=== PATIENT | male | born 2000 | race African-American/Black ===

== ENCOUNTER 2023-09-26 09:47 | Observation (INO) | payer OTHER ==
--- NOTE | 2023-09-26 10:12 | ED ---
General Adult HPI - General Chief complaint: Chest Pain Stated complaint: Chest pain Time Seen by Provider: 09/26/23 10:00 Source: patient, RN notes reviewed, old records reviewed Mode of arrival: ambulatory Limitations: no limitations - History of Present Illness Initial comments: This is a 23-year-old male who presents to the emergency department stating that he has had high blood pressure in the past but takes no medicines currently. Patient states he has been on them but his blood pressure comes down so he comes off of them. Patient states for the last month and a half he has been having a fast heart rate even when he gets up and walks around and he is having some associated chest pain on the left side when it occurs as well as shortness of breath. Patient states he supposed to do some physical activity with [employer] and he states he is unable to do it because his heart rate starts racing immediately. Patient states his heart rate will get up about 120 with just walking. Patient has no physician at this time. Patient has not seen anybody in the last month and a half of the symptoms. Patient denies any blurred vision or headache. Patient [place] any numbness or weakness. - Related Data Allergies Allergy/AdvReac Type Severity Reaction Status Date / Time No Known Allergies Allergy Verified 09/26/23 09:51 Review of Systems ROS Statement: Those systems with pertinent positive or pertinent negative responses have been documented in the HPI. ROS Other: All systems not noted in ROS Statement are negative. Past Medical History Past Medical History: No Reported History History of Any Multi-Drug Resistant Organisms: None Reported Past Surgical History: No Surgical Hx Reported Past Psychological History: No Psychological Hx Reported Smoking Status: Never smoker Past Alcohol Use History: None Reported Past Drug Use History: None Reported General Exam - General Exam Comments Initial Comments: GENERAL: Patient is well-developed and well-nourished. Patient is nontoxic and well- hydrated and is in mild distress. ENT: Neck is soft and supple. No significant lymphadenopathy is noted. Oropharynx is clear. Moist mucous membranes. Neck has full range of motion without eliciting any pain. EYES: The sclera were anicteric and conjunctiva were pink and moist. Extraocular movements were intact and pupils were equal round and reactive to light. Eyelids were unremarkable. PULMONARY: Unlabored respirations. Good breath sounds bilaterally. No audible rales rhonchi or wheezing was noted. CARDIOVASCULAR: There is a regular rate and rhythm without any murmurs gallops or rubs. ABDOMEN: Soft and nontender with normal bowel sounds. SKIN: Skin is clear with no lesions or rashes and otherwise unremarkable. NEUROLOGIC: Patient is alert and oriented x3. Cranial nerves II through XII are grossly intact. Motor and sensory are also intact. Normal speech, volume and content. Symmetrical smile. MUSCULOSKELETAL: Normal extremities with adequate strength and full range of motion. LYMPHATICS: No significant lymphadenopathy is noted PSYCHIATRIC: Normal psychiatric evaluation. Limitations: no limitations Course Vital Signs 09/26/23 09/26/23 09/26/23 09:49 10:30 10:40 Temperature 97.9 F Pulse Rate 101 H 90 110 H Respiratory 18 Rate Blood Pressure 178/122 165/105 148/103 O2 Sat by Pulse 99 Oximetry 09/26/23 09/26/23 09/26/23 10:50 11:00 11:15 Temperature Pulse Rate 90 91 Respiratory Rate Blood Pressure 157/104 157/104 143/103 O2 Sat by Pulse Oximetry 09/26/23 09/26/23 09/26/23 11:30 11:45 12:00 Temperature Pulse Rate 94 105 H 93 Respiratory Rate Blood Pressure 147/93 141/92 140/95 O2 Sat by Pulse Oximetry 09/26/23 09/26/23 09/26/23 12:15 12:30 12:45 Temperature Pulse Rate 87 101 H 95 Respiratory Rate Blood Pressure 139/91 143/104 160/101 O2 Sat by Pulse Oximetry 09/26/23 09/26/23 09/26/23 13:00 13:15 13:30 Temperature Pulse Rate 87 102 H 87 Respiratory Rate Blood Pressure 156/102 163/100 160/104 O2 Sat by Pulse Oximetry Medical Decision Making - Medical Decision Making EKG is interpreted by myself but EKG shows a sinus rhythm at 89 bpm parables 144 QRS is 94 QT interval 346 QTc is 393. Patient's EKG shows no ST segment elevation or depression Was pt. sent in by a medical professional or institution ([facility], [employer], urgent care, hospital, or group home...) When possible be specific @ -No Did you speak to anyone other than the patient for history (EMS, parent, family, police, friend...)? What history was obtained from this source @ -No Did you review nursing and triage notes (agree or disagree)? Why? @ -I reviewed and agree with nursing and triage notes Were old charts reviewed (outside hosp., previous admission, EMS record, old EKG, old radiological studies, urgent care reports/EKG's, group home records)? Report findings @ -No old charts were reviewed Differential Diagnosis (chest pain, altered mental status, abdominal pain women, abdominal pain men, vaginal bleeding, weakness, fever, dyspnea, syncope, headache, dizziness, GI bleed, back pain, seizure, CVA, palpatations, mental health, musculoskeletal)? @ -Differential Dyspnea: Coronary syndrome, arrhythmia, tamponade, asthma, COPD, pulmonary embolism, pneumonia, pneumothorax, pulmonary effusion, anaphylaxis, diabetic ketoacidosis, flailed chest, pulmonary contusion, diaphragmatic rupture, anemia, neuromuscular, this is not meant to be an all-inclusive list. EKG interpreted by me (3pts min.). @ -As above X-rays interpreted by me (1pt min.). @ -Chest x-ray shows no acute abnormality CT interpreted by me (1pt min.). @ -None done U/S interpreted by me (1pt. min.). @ -None done What testing was considered but not performed or refused? (CT, X-rays, U/S, labs)? Why? @ -None What meds were considered but not given or refused? Why? @ -None Did you discuss the management of the patient with other professionals (professionals i.e. , PA, HANDSTITCHING MACHINE COLLAR FELLER, lab, RT, psych nurse, dialysis social worker, spray gun striper, teacher, medical laboratory technical officer, manager rn case)? Give summary @ -I spoke with Dr. Abebe agreed to admit the patient Was smoking cessation discussed for >3mins.? @ -No Was critical care preformed (if so, how long)? @ -No Were there social determinants of health that impacted care today? How? (Homelessness, low income, unemployed, alcoholism, drug addiction, transportation, low edu. Level, literacy, decrease access to med. care, detention, rehab)? @ -No Was there de-escalation of care discussed even if they declined (Discuss DNR or withdrawal of care, Hospice)? DNR status @ -No What co-morbidities impacted this encounter? (DM, HTN, Smoking, COPD, CAD, Cancer, CVA, ARF, Chemo, Hep., AIDS, mental health diagnosis, sleep apnea, morbid obesity)? @ -None Was patient admitted / discharged? Hospital course, mention meds given and route, prescriptions, significant lab abnormalities, going to OR and other pertinent info. @ -Patient was given hydralazine to bring his blood pressure down it did bring the pressure down but patient stayed tachycardic even at rest and when he got up and walked on his heart rate went up into the 120s 130s range. I spoke with Dr. Abebe agreed admit the patient. I ordered an echo and I consult the cardiology Undiagnosed new problem with uncertain prognosis? @ -No Drug Therapy requiring intensive monitoring for toxicity (Heparin, Nitro, Insulin, Cardizem)? @ -No Were any procedures done? @ -No Diagnosis/symptom? @ -Exertional dyspnea Acute, or Chronic, or Acute on Chronic? @ -Acute Uncomplicated (without systemic symptoms) or Complicated (systemic symptoms)? @ -Complicated Side effects of treatment? @ -No Exacerbation, Progression, or Severe Exacerbation? @ -No Poses a threat to life or bodily function? How? (Chest pain, [place], [place], pneumonia, PE, COPD, DKA, ARF, appy, cholecystitis, CVA, Diverticulitis, Homicidal, Suicidal, threat to staff... and all critical care pts) @ -Yes this could lead to hypoxia and endorgan dysfunction Diagnosis/symptom? @ -Tachycardia Acute, or Chronic, or Acute on Chronic? @ -Acute Uncomplicated (without systemic symptoms) or Complicated (systemic symptoms)? @ -Complicated Side effects of treatment? @ -None Exacerbation, Progression, or Severe Exacerbation] @ -No Poses a threat to life or bodily function? @ -No - Lab Data Result diagrams: 09/26/23 10:19 09/26/23 10:19 Lab Results 09/26/23 09/26/23 09/26/23 Range/Units 10:19 10:19 10:19 WBC 4.8 (3.8-10.6) k/uL RBC 4.54 (4.30-5.90) m/uL Hgb 11.6 L (13.0-17.5) gm/dL Hct 37.4 L (39.0-53.0) % MCV 82.3 (80.0-100.0) fL MCH 25.5 (25.0-35.0) pg MCHC 31.0 (31.0-37.0) g/dL RDW 15.1 (11.5-15.5) % Plt Count 426 (150-450) k/uL MPV 7.6 Neutrophils % 48 % Lymphocytes % 40 % Monocytes % 6 % Eosinophils % 4 % Basophils % 1 % Neutrophils # 2.3 (1.3-7.7) k/uL Lymphocytes # 1.9 (1.0-4.8) k/uL Monocytes # 0.3 (0-1.0) k/uL Eosinophils # 0.2 (0-0.7) k/uL Basophils # 0.0 (0-0.2) k/uL Hypochromasia Moderate Poikilocytosis Slight PT 10.1 (10.0-12.5) sec INR 0.9 (<1.2) APTT 26.4 (22.0-30.0) sec D-Dimer <0.17 (<0.60) mg/L FEU Sodium (137-145) mmol/L Potassium (3.5-5.1) mmol/L Chloride (98-107) mmol/L Carbon Dioxide (22-30) mmol/L Anion Gap mmol/L BUN (9-20) mg/dL Creatinine (0.66-1.25) mg/dL Est GFR (CKD-EPI)AfAm (>60 ml/min/1.73 sqM) Est GFR (CKD-EPI)NonAf (>60 ml/min/1.73 sqM) Glucose (74-99) mg/dL Calcium (8.4-10.2) mg/dL Magnesium (1.6-2.3) mg/dL Total Bilirubin (0.2-1.3) mg/dL AST (17-59) U/L ALT (4-49) U/L Alkaline Phosphatase (38-126) U/L Troponin I (0.000-0.034) ng/mL NT-Pro-B Natriuret Pep pg/mL Total Protein (6.3-8.2) g/dL Albumin (3.5-5.0) g/dL TSH (0.465-4.680) mIU/L Urine Opiates Screen Not Detected (NotDetected) Ur Oxycodone Screen Not Detected (NotDetected) Urine Methadone Screen Not Detected (NotDetected) Ur Barbiturates Screen Not Detected (NotDetected) U Tricyclic Antidepress Not Detected (NotDetected) Ur Phencyclidine Scrn Not Detected (NotDetected) Ur Amphetamines Screen Not Detected (NotDetected) U Methamphetamines Scrn Not Detected (NotDetected) U Benzodiazepines Scrn Not Detected (NotDetected) Urine Cocaine Screen Not Detected (NotDetected) U Marijuana (THC) Screen Not Detected (NotDetected) 09/26/23 09/26/23 Range/Units 10:19 10:19 WBC (3.8-10.6) k/uL RBC (4.30-5.90) m/uL Hgb (13.0-17.5) gm/dL Hct (39.0-53.0) % MCV (80.0-100.0) fL MCH (25.0-35.0) pg MCHC (31.0-37.0) g/dL RDW (11.5-15.5) % Plt Count (150-450) k/uL MPV Neutrophils % % Lymphocytes % % Monocytes % % Eosinophils % % Basophils % % Neutrophils # (1.3-7.7) k/uL Lymphocytes # (1.0-4.8) k/uL Monocytes # (0-1.0) k/uL Eosinophils # (0-0.7) k/uL Basophils # (0-0.2) k/uL Hypochromasia Poikilocytosis PT (10.0-12.5) sec INR (<1.2) APTT (22.0-30.0) sec D-Dimer (<0.60) mg/L FEU Sodium 140 (137-145) mmol/L Potassium 4.4 (3.5-5.1) mmol/L Chloride 110 H (98-107) mmol/L Carbon Dioxide 20 L (22-30) mmol/L Anion Gap 10 mmol/L BUN 10 (9-20) mg/dL Creatinine 0.87 (0.66-1.25) mg/dL Est GFR (CKD-EPI)AfAm >90 (>60 ml/min/1.73 sqM) Est GFR (CKD-EPI)NonAf >90 (>60 ml/min/1.73 sqM) Glucose 93 (74-99) mg/dL Calcium 9.7 (8.4-10.2) mg/dL Magnesium 1.9 (1.6-2.3) mg/dL Total Bilirubin 0.3 (0.2-1.3) mg/dL AST 26 (17-59) U/L ALT 35 (4-49) U/L Alkaline Phosphatase 74 (38-126) U/L Troponin I <0.012 (0.000-0.034) ng/mL NT-Pro-B Natriuret Pep <20 pg/mL Total Protein 8.0 (6.3-8.2) g/dL Albumin 4.5 (3.5-5.0) g/dL TSH 1.000 (0.465-4.680) mIU/L Urine Opiates Screen (NotDetected) Ur Oxycodone Screen (NotDetected) Urine Methadone Screen (NotDetected) Ur Barbiturates Screen (NotDetected) U Tricyclic Antidepress (NotDetected) Ur Phencyclidine Scrn (NotDetected) Ur Amphetamines Screen (NotDetected) U Methamphetamines Scrn (NotDetected) U Benzodiazepines Scrn (NotDetected) Urine Cocaine Screen (NotDetected) U Marijuana (THC) Screen (NotDetected) Disposition Clinical Impression: Chest pain, Tachycardia, Exertional dyspnea Disposition: ADMITTED IP TO THIS HOSP Referrals: None,Stated [REFERRING] - 1-2 days Time of Disposition: 14:30
[2023-09-26] MEDS: hydrALAZINE HCL 20 MG/ML 1 ML VIAL IVP STA (10:26)
[2023-09-26 10:58] LABS: ALT 35 U/L (4-49); AST 26 U/L (17-59); African American GFR (CKD) >90 (>60 ml/min/1.73 sqM); Albumin 4.5 g/dL (3.5-5.0); Alkaline Phosphatase 74 U/L (38-126); Anion Gap 10 mmol/L; Blood Urea Nitrogen 10 mg/dL (9-20); Calcium 9.7 mg/dL (8.4-10.2); Carbon Dioxide 20 mmol/L (22-30); Chloride 110 mmol/L (98-107); Glucose 93 mg/dL (74-99); Magnesium 1.9 mg/dL (1.6-2.3); Non-African American GFR(CKD) >90 (>60 ml/min/1.73 sqM); Potassium 4.4 mmol/L (3.5-5.1); Sodium 140 mmol/L (137-145); Total Bilirubin 0.3 mg/dL (0.2-1.3)
--- NOTE | 2023-09-26 10:59 | XR ---
EXAMINATION TYPE: XR chest 2V DATE OF EXAM: 09/26/2023 COMPARISON: NONE HISTORY: Chest pain TECHNIQUE: Frontal and lateral views of the chest are obtained. FINDINGS: There is no focal air space opacity. No evidence for pneumothorax. No pleural effusion. The cardiac silhouette size is within normal limits. The osseous structures are grossly intact. IMPRESSION: 1. No acute cardiopulmonary process.
[2023-09-26 11:11] LABS: NT-Pro-B-Type Natriuretic Pept <20 pg/mL
[2023-09-26 11:12] LABS: Basophils % (A) 1 %; Eosinophils # (A) 0.2 k/uL (0-0.7); Eosinophils % (A) 4 %; HCT 37.4 % (39.0-53.0); HGB 11.6 gm/dL (13.0-17.5); Hypochromasia Moderate; Lymphocytes # (A) 1.9 k/uL (1.0-4.8); Lymphocytes % (A) 40 %; MCH 25.5 pg (25.0-35.0); MCV 82.3 fL (80.0-100.0); Mean Platelet Volume 7.6; Monocytes # (A) 0.3 k/uL (0-1.0); Monocytes % (A) 6 %; Neutrophils # (A) 2.3 k/uL (1.3-7.7); Neutrophils % (A) 48 %; Platelet Count 426 k/uL (150-450); Poikilocytosis Slight; RBC 4.54 m/uL (4.30-5.90); RDW 15.1 % (11.5-15.5); WBC 4.8 k/uL (3.8-10.6)
[2023-09-26 11:19] LABS: INR 0.9 (<1.2); Partial Thromboplastin Time 26.4 sec (22.0-30.0); Prothrombin Time 10.1 sec (10.0-12.5)
[2023-09-26 12:57] LABS: Amphetamine Screen,Urine Not Detected (NotDetected); Barbiturate Screen,Urine Not Detected (NotDetected); Benzodiazepines Screen,Urine Not Detected (NotDetected); Cocaine Screen,Urine Not Detected (NotDetected); Methadone Screen, Urine Not Detected (NotDetected); Opiate Screen,Urine Not Detected (NotDetected); Oxycodone Screen, Urine Not Detected (NotDetected); Phencyclidine Screen,Urine Not Detected (NotDetected); Tricyclic Antidepressant,Urine Not Detected (NotDetected); Urn Cannabinoid Scrn Not Detected (NotDetected)
[2023-09-26] MEDS ORDERED: NITROGLYCERIN SL TABS 0.4 MG TAB SUBLINGUAL PRN (14:33)
[2023-09-26 16:13] VITALS: RESP 16
[2023-09-26] MEDS ORDERED: MELATONIN 3 MG TABLET PO PRN (17:01)
[2023-09-26] MEDS ORDERED: ONDANSETRON 4 MG/2 ML VIAL IVP PRN (17:01)
[2023-09-26] MEDS ORDERED: LACTULOSE 20 GM/30 ML CUP PO PRN (17:01)
[2023-09-26] MEDS ORDERED: CALCIUM CARBONATE 500 MG CHEWABLE PO PRN (17:01)
[2023-09-26] MEDS ORDERED: ACETAMINOPHEN TAB 325 MG TAB PO PRN (17:01)
[2023-09-26] MEDS ORDERED: NALOXONE 0.4 MG/ML 1 ML VIAL IV PRN (17:01)
--- NOTE | 2023-09-26 17:09 | P.HPIM ---
History of Present Illness H&P Date: 09/26/23 Chief Complaint: Chest pain This is a pleasant 23-year-old patient who is currently seeking to see Dr. Lino Colvin and establish him as a PCP. Patient is accompanied by his girlfriend in the room. For about 6 weeks patient getting short of breath with exertion. He is normally sleeps with 2 pillows. Also stops breathing sometimes at night. As his girlfriend is reported. Does snore sometimes. Also yesterday while carrying empty garbage cans back to the house he developed sharp stabbing pain in the left precordial area. Denies any swelling of the legs. Does get a bit tired. Works in the [employer] in [place]. Patient is adopted. Denies any history of medical problems while growing up. Review of systems: GEN.: Tired EYES: None HEENT: None NECK: None RESPIRATORY: As above e CARDIOVASCULAR: As above e GASTROINTESTINAL: None GENITOURINARY: None MUSCULOSKELETAL: None LYMPHATICS: None HEMATOLOGICAL: None PSYCHIATRY: None NEUROLOGICAL: None Social history: Lives with his mother. Works in the [employer] at [place]. No smoking no alcohol no use of recreational drugs. Physical examination: VITAL SIGNS: 98.1, 90, 16, 140 x 87, 100% room air GENERAL: BMI 35.0, reclining bed awake comfortable. EYES: Pupils equal. Conjunctiva marguerite l. HEENT: External appearance of nose and ears normal, oral cavity grossly normal. NECK: JVD possibly raised; masses not palpable. HEART: First and second heart sounds are normal; no edema, systolic murmur. LUNGS: Respiratory rate normal; clear to auscultation. ABDOMEN: Soft, nontender, liver spleen not palpable, no masses palpable. PSYCH: Alert and oriented x3; mood and affect marguerite l. MUSCULOSKELETAL:No Clubbing/cyanosis;muscles-grossly intact NEUROLOGICAL: Cranial nerves grossly intact; no facial asymmetry, power and sensation grossly intact. LYMPHATICS: No lymph nodes palpable in the axilla and neck INVESTIGATIONS, reviewed in the clinical context: White count 4.8 hemoglobin 11.6 platelets 426 sodium 140 potassium 4.4 BUN 10 creatinine 0.87 Troponin I less than 0.012 x 2 proBNP less than 20 D-dimer less than 0.17 Urine drug screen: Negative EKG tracing personally reviewed by me-normal sinus rhythm. Chest x-ray film personally reviewed by me-no obvious abnormality Assessment plan: -Patient presents with increasing shortness of breath with exertion for short distance going on for about 6 weeks. Also having sharp stabbing pain with some activity today. Patient not in any overt cardiac failure. 2D echocardiogram. Telemetry. Rule out arrhythmia. Consult cardiology. -Obesity BMI 35 Weight loss measures -Normocytic anemia Check iron studies, B12 folate. I -Patient does snoring and does stop breathing as per his girlfriend. Outpatient workup for obstructive sleep apnea 2D echo. Consult cardiology and Dr. Lino Colvin from pulmonary who the patient supposed to see outpatient. Care was discussed with patient and his girlfriend at the bedside. Past Medical History Past Medical History: Hypertension History of Any Multi-Drug Resistant Organisms: None Reported Past Surgical History: No Surgical Hx Reported Past Anesthesia/Blood Transfusion Reactions: No Reported Reaction Past Psychological History: No Psychological Hx Reported Smoking Status: Never smoker Past Alcohol Use History: None Reported Past Drug Use History: None Reported Medications and Allergies Home Medications Medication Instructions Recorded Confirmed Type No Known Home Medications 09/26/23 09/26/23 History Allergies Allergy/AdvReac Type Severity Reaction Status Date / Time No Known Allergies Allergy Verified 09/26/23 15:18 Physical Exam Vitals: Vital Signs Temp Pulse Pulse Resp BP BP Pulse Ox 09/26/23 16:32 90 16 09/26/23 16:02 98.1 F 90 16 140/87 100 09/26/23 15:00 89 18 168/103 96 09/26/23 14:30 84 160/101 09/26/23 14:00 87 156/108 09/26/23 13:30 87 160/104 09/26/23 13:15 102 H 163/100 09/26/23 13:00 87 156/102 09/26/23 12:45 95 160/101 09/26/23 12:30 101 H 143/104 09/26/23 12:15 87 139/91 09/26/23 12:10 110 H 09/26/23 12:00 93 140/95 09/26/23 11:45 105 H 141/92 09/26/23 11:30 94 147/93 09/26/23 11:15 91 143/103 09/26/23 11:00 90 157/104 09/26/23 10:50 157/104 09/26/23 10:40 110 H 148/103 09/26/23 10:30 90 165/105 09/26/23 09:49 97.9 F 101 H 18 178/122 99 Intake and Output 09/26/23 09/26/23 09/26/23 06:59 14:59 22:59 Other: Voiding Method Toilet Weight 104.326 kg 104.326 kg Results CBC & Chem 7: 09/26/23 10:19 09/26/23 10:19 Labs: Abnormal Lab Results - Last 24 Hours (Table) 09/26/23 09/26/23 Range/Units 10:19 10:19 Hgb 11.6 L (13.0-17.5) gm/dL Hct 37.4 L (39.0-53.0) % Chloride 110 H (98-107) mmol/L Carbon Dioxide 20 L (22-30) mmol/L Thrombosis Risk Factor Assmnt - Choose All That Apply Any of the Below Risk Factors Present?: Yes Each Factor Represents 1 point: Obesity (BMI >25) Other Risk Factors: No Thrombosis Risk Factor Assessment Total Risk Factor Score: 1 Thrombosis Risk Factor Assessment Level: Low Risk
[2023-09-26] MEDS: ENOXAPARIN 40 MG/0.4 ML SYRINGE SQ SCH (17:23)
--- NOTE | 2023-09-26 17:39 | CA ---
Transthoracic Echo Report Name: Yoly Lott Age: 23 Gender: M : 2000 Exam Date: 09/26/2023 13:50 Exam Location: [facility] Ht (in): 68 Wt (lb): 230 Ordering Physician: Ezequiel Mccallum MD Attending/Referring Phys: Process Control Technician Kiara Massey RDCS Procedure CPT: Indications: Difficulty breathing and tachycardia Cardiac Hx: Technical Quality: Good Contrast 1: Total Dose (mL): Contrast 2: Total Dose (mL): MEASUREMENTS (Male / Female) Normal Values 2D ECHO LV Diastolic Diameter PLAX 5.5 cm 4.2 - 5.9 / 3.9 - 5.3 cm LV Systolic Diameter PLAX 3.5 cm IVS Diastolic Thickness 1.0 cm 0.6 - 1.0 / 0.6 - 0.9 cm LVPW Diastolic Thickness 1.2 cm 0.6 - 1.0 / 0.6 - 0.9 cm LV Relative Wall Thickness 0.4 RV Internal Dim ED PLAX 3.2 cm LA Systolic Diameter LX 3.7 cm 3.0 - 4.0 / 2.7 - 3.8 cm LV Diastolic Volume MOD BP 131.5 cm??? 67 - 155 / 56 - 104 cm??? LV Systolic Volume MOD BP 60.2 cm??? 22 - 58 / 19 - 49 cm??? LV Ejection Fraction MOD BP 54.2 % >= 55 % LV Cardiac Index MOD BP 2629.5 cm???/min???m??? LV Diastolic Volume MOD 4C 158.5 cm??? LV Systolic Volume MOD 4C 75.3 cm??? LV Ejection Fraction MOD 4C 52.5 % LV Cardiac Index MOD 4C 3066.6 cm???/min???m??? LV Diastolic Length 4C 8.5 cm LV Systolic Length 4C 7.8 cm LV Diastolic Volume MOD 2C 109.8 cm??? LV Systolic Volume MOD 2C 45.7 cm??? LV Ejection Fraction MOD 2C 58.4 % LV Cardiac Index MOD 2C 2364.6 cm???/min???m??? LV Diastolic Length 2C 8.8 cm LV Systolic Length 2C 7.2 cm M-MODE Aortic Root Diameter MM 2.8 cm DOPPLER AV Peak Velocity 140.2 cm/s AV Peak Gradient 7.9 mmHg Mitral E Point Velocity 81.7 cm/s Mitral A Point Velocity 63.5 cm/s Mitral E to A Ratio 1.3 MV Deceleration Time 226.6 ms MV E' Velocity 8.4 cm/s Mitral E to MV E' Ratio 9.7 TR Peak Velocity 240.4 cm/s TR Peak Gradient 23.1 mmHg Right Ventricular Systolic Press 28.1 mmHg FINDINGS Left Ventricle Left ventricular ejection fraction is estimated at 55-60 %. Left ventricular cavity size normal. Mildly increased left ventricular systolic volume. Normal left ventricular wall motion. Right Ventricle Normal right ventricular size. Right ventricular systolic pressure within normal limits. Right Atrium Normal right atrial size. Left Atrium Normal left atrial size. Mitral Valve Structurally normal mitral valve. Trace to mild mitral regurgitation. Aortic Valve Trileaflet aortic valve. No aortic valve stenosis or regurgitation. Tricuspid Valve Structurally normal tricuspid valve. Mild tricuspid regurgitation. Pulmonic Valve Structurally normal pulmonic valve. Trace pulmonic regurgitation. Pericardium No pericardial effusion. Aorta Normal size aortic root and proximal ascending aorta. CONCLUSIONS Left ventricular EF 55-60% RVSP 28 Trace to mild mitral regurgitation Mild tricuspid regurgitation No pericardial effusion Previewed by: Dr. Pop Marroquin DO (Electronically Signed) Final Date: 26 September 2023 17:38
--- NOTE | 2023-09-26 21:00 | P.CNPUL ---
History of Present Illness Consult date: 09/26/23 Reason for consult: dyspnea, obstructive sleep apnea Chief complaint: Increasing shortness of breath and left-sided chest pain History of present illness: 23-year-old morbidly obese with history of hypertension in the past has been on antihypertensive agent but due to low blood pressure several years ago has been taking off patient is a nonsmokershortness of breath has been progressive for last 6 weeks especially on exertion patient has been sleeping with 2 pillows patient was in fact supposed to see me as outpatient for sleep disorder breathing and sleep apnea.yesterday while doing exertion pushing garbage cans developed left-sided chest pain decided to come into the hospital for further evaluation, on arrival his blood pressure 178/122 heart rate is 101 he was afebrile and saturation 99%his labs are significant for anemia with hemoglobin 11.6 and hematocrit of 37.4, rest of the CBC fairly within normal limit, coags normal d-dimer is less than 0.17, CO2 is 20, chloride is 110 rest of the chemistry fairly within normal limit troponin 3 within normal limit, urine drug screen is negative, his chest x-ray no acute cardiopulmonary process seen, echocardiogramrevealed ejection fraction of 55%, RVSP is 28, mild TR Review of Systems All systems: negative Past Medical History Past Medical History: Hypertension History of Any Multi-Drug Resistant Organisms: None Reported Past Surgical History: No Surgical Hx Reported Past Anesthesia/Blood Transfusion Reactions: No Reported Reaction Past Psychological History: No Psychological Hx Reported Smoking Status: Never smoker Past Alcohol Use History: None Reported Past Drug Use History: None Reported Medications and Allergies Home Medications Medication Instructions Recorded Confirmed Type No Known Home Medications 09/26/23 09/26/23 History Allergies Allergy/AdvReac Type Severity Reaction Status Date / Time No Known Allergies Allergy Verified 09/26/23 15:18 Physical Exam Vitals: Vital Signs Temp Pulse Pulse Resp BP BP Pulse Ox 09/26/23 16:32 90 16 09/26/23 16:02 98.1 F 90 16 140/87 100 09/26/23 15:00 89 18 168/103 96 09/26/23 14:30 84 160/101 09/26/23 14:00 87 156/108 09/26/23 13:30 87 160/104 09/26/23 13:15 102 H 163/100 09/26/23 13:00 87 156/102 09/26/23 12:45 95 160/101 09/26/23 12:30 101 H 143/104 09/26/23 12:15 87 139/91 09/26/23 12:10 110 H 09/26/23 12:00 93 140/95 09/26/23 11:45 105 H 141/92 09/26/23 11:30 94 147/93 09/26/23 11:15 91 143/103 09/26/23 11:00 90 157/104 09/26/23 10:50 157/104 09/26/23 10:40 110 H 148/103 09/26/23 10:30 90 165/105 09/26/23 09:49 97.9 F 101 H 18 178/122 99 Intake and Output 09/26/23 09/26/23 09/26/23 06:59 14:59 22:59 Intake Total 118 Balance 118 Intake: Oral 118 Other: Voiding Method Toilet # Voids 1 Weight 104.326 kg 104.326 kg - Constitutional General appearance: disheveled, morbidly obese, no acute distress - EENT Eyes: EOMI, PERRLA Ears: bilateral: normal - Neck Neck: normal ROM Carotids: bilateral: upstroke normal Thyroid: bilateral: normal size - Respiratory Respiratory: bilateral: CTA - Cardiovascular Rhythm: regular Heart sounds: normal: S1, S2 - Gastrointestinal General gastrointestinal: normal bowel sounds, soft - Integumentary Integumentary: normal turgor - Neurologic Neurologic: CNII-XII intact - Musculoskeletal Musculoskeletal: gait normal, strength equal bilaterally - Psychiatric Psychiatric: A&O x's 3, appropriate affect, intact judgment & insight Results - Laboratory Findings CBC and BMP: 09/26/23 10:19 09/26/23 10:19 PT/INR, D-dimer PT 10.1 sec (10.0-12.5) 09/26/23 10:19 INR 0.9 (<1.2) 09/26/23 10:19 D-Dimer <0.17 mg/L FEU (<0.60) 09/26/23 10:19 Abnormal lab findings: Abnormal Labs 09/26/23 09/26/23 10:19 10:19 Hgb 11.6 L Hct 37.4 L Chloride 110 H Carbon Dioxide 20 L - Diagnostic Findings Chest x-ray: report reviewed, image reviewed (ECG revealed normal sinus rhythm, normal QT interval well) Assessment and Plan Assessment: hypertensive urgency Left-sided precordial chest pain likely related to elevated blood pressure and hypertensive urgency Sleep disorder breathing and sleep apnea Mild pulmonary hypertension likely related to sleep disorder breathing and sleep apnea dyspnea on exertion, likely associated with uncontrolled hypertension and cardiovascular process, morbid obesity Plan: continue with blood pressure control patient has received hydralazine, oral medications like low dose in CRISTOBAL inhibitor or calcium channel stacie can be initiated Patient will likely need outpatient polysomnogram as well as PFT Further evaluation from cardiovascular services pending DVT prophylaxis with Lovenox Melatonin for insomnia Sublingual nitro for chest pain Time with Patient: Greater than 30
[2023-09-27 03:22] VITALS: PULSE 95
[2023-09-27] MEDS: amLODIPine 10 MG TAB PO SCH (08:53)
[2023-09-27] MEDS: ASPIRIN 325 MG TAB PO SCH (08:53)
[2023-09-27] MEDS: LOSARTAN 50 MG TAB PO SCH (08:53)
[2023-09-27 08:54] VITALS: BP 148/84; TEMP 98.2
--- NOTE | 2023-09-27 09:24 | CONS ---
CONSULTATION CHIEF COMPLAINT: Shortness of breath and chest tightness. HISTORY OF PRESENT ILLNESS: The patient is a 23-year-old gentleman with history of hypertension who works in the [employer], came to hospital complaining of shortness of breath with very minimal activity and vague discomfort in his chest. On his initial arrival, his blood pressures were poorly controlled and his symptoms have gradually resolved. At the time of my evaluation, he is chest pain free. Blood pressure is still elevated. D-dimer is negative. 3 sets of troponins are negative. BNP is normal. Urine drug screen is normal. An EKG shows sinus rhythm, normal axis, normal intervals. Patient states that he was diagnosed with hypertension almost 10 years ago, was on antihypertensives for a short time and then it was stopped. An echocardiogram this admission reveals normal LV function and there is no evidence of left ventricular hypertrophy. I am going to start him on losartan and Norvasc for blood pressure control and check serum cortisol, renin, aldosterone, metanephrines to workup for secondary hypertension. He will also need a renal artery duplex scan which we will do as outpatient. PAST MEDICAL HISTORY: Significant for hypertension. MEDICATIONS: None. ALLERGIES: None. FAMILY HISTORY: Negative for premature coronary artery disease. SOCIAL HISTORY: Negative for current smoking, EtOH abuse or drug abuse. REVIEW OF SYSTEMS: 14 out of 14 review of systems has been performed, pertinents are as documented. PHYSICAL EXAMINATION: VITAL SIGNS: Patient is afebrile. Heart rate is 90 beats per minute. Blood pressure is 154/90, respiratory rate 18, O2 saturation is 100% on room air. NECK: There is no jugular venous distention. Carotid upstroke is normal. There is no bruit. CHEST: Reveals good air entry bilaterally. HEART: First and second heart sounds. No gallop. No murmur. No rub. ABDOMEN: Soft, nontender. EXTREMITIES: Did not reveal any edema. Peripheral pulses are felt. LABORATORY DATA: Show a hemoglobin of 11.6, platelet count is 426, potassium is 4.4, creatinine is 0.8. Troponins are negative. EKG is normal. TSH is normal. ASSESSMENT: 1. Atypical chest pain. 2. Uncontrolled hypertension. PLAN: I will treat the patient with losartan and Norvasc for blood pressure control. Echocardiogram looks normal. We will obtain a regular treadmill stress test on him on Friday or we can let him go home and get the stress test done as outpatient also. MMALEISHAL / GALN: [id number] /
[2023-09-27 13:40] LABS: % Iron Saturation 7.74 (15.00-50.00); Chol/HDL Ratio 5.37 Ratio; Ferritin 31.6 ng/mL (22.0-322.0); Iron 35 UG/DL (65-175); LDL Cholesterol,Calculated 137.9 mg/dL (0.0-131.0); Total Iron Binding Capacity 452 UG/DL (228-460)
--- NOTE | 2023-09-27 18:03 | P.DS ---
Providers Date of admission: 09/26/23 14:35 Expected date of discharge: 09/27/23 Attending physician: Davis Abebe Consults: 09/26/23 14:33 Consult Physician Urgent Consulting Provider: [facility] Consult Reason/Comments: Chest pain, tachycardia, exertional dyspnea Do you want consulting provider notified?: Yes 09/26/23 16:56 Consult Physician Routine Consulting Provider: Prabhjot Colvin Consult Reason/Comments: SOB Do you want consulting provider notified?: Yes Primary care physician: Prabhjot Colvin Hospital Course: Chief Complaint: Chest pain This is a pleasant 23-year-old patient who is currently seeking to see Dr. Lino Colvin and establish him as a PCP. Patient is accompanied by his girlfriend in the room. For about 6 weeks patient getting short of breath with exertion. He is normally sleeps with 2 pillows. Also stops breathing sometimes at night. As his girlfriend is reported. Does snore sometimes. Also yesterday while carrying empty garbage cans back to the house he developed sharp stabbing pain in the left precordial area. Denies any swelling of the legs. Does get a bit tired. Works in the [employer] in [place]. Patient is adopted. Denies any history of medical problems while growing up. September 26: Feeling well. Blood pressure better. Will be discharged on Cozaar and amlodipine. Patient to follow-up with Dr. Antonia Hooker in the office and get a stress test. Discussed with the patient and his girlfriend at the bedside. Patient told to remain off his duties until cleared by cardiology. Questions answered. Also follow-up with Dr. Lino Colvin outpatient for a sleep study. Social history: Lives with his mother. Works in the [employer] at [place]. No smoking no alcohol no use of recreational drugs. Physical examination: VITAL SIGNS: 98.2, 95, 16, 148 x 84, 98% room air GENERAL: BMI 35.0, comfortable EYES: Pupils equal. Conjunctiva marguerite l. HEENT: External appearance of nose and ears normal, oral cavity grossly normal. NECK: JVD possibly raised; masses not palpable. HEART: First and second heart sounds are normal; no edema, systolic murmur. LUNGS: Respiratory rate normal; clear to auscultation. ABDOMEN: Soft, nontender, liver spleen not palpable, no masses palpable. PSYCH: Alert and oriented x3; mood and affect marguerite l. MUSCULOSKELETAL:No Clubbing/cyanosis;muscles-grossly intact NEUROLOGICAL: Cranial nerves grossly intact; no facial asymmetry, power and sensation grossly intact. INVESTIGATIONS, reviewed in the clinical context: 2D echocardiogram: EF 55 to 60%. Iron 35% saturation 7.74 ferritin 31.6 LDL 137.9 TSH 0.834 cortisol 10.9 White count 4.8 hemoglobin 11.6 platelets 426 sodium 140 potassium 4.4 BUN 10 creatinine 0.87 Troponin I less than 0.012 x 2 proBNP less than 20 D-dimer less than 0.17 Urine drug screen: Negative EKG tracing personally reviewed by me-normal sinus rhythm. Chest x-ray film personally reviewed by me-no obvious abnormality Assessment plan: -Essential HTN, uncontrolled Cozaar 50 mg a day. Amlodipine 10 mg a day. -Atypical chest pain likely from hypertension Outpatient stress test with Dr. Antonia Hooker. Aspirin 81 mg a day -Obesity BMI 35 Weight loss measures -Normocytic anemia Iron deficiency anemia. Further workup outpatient by Dr. Lino Colvin will be the new PCP -Borderline hyperlipidemia Diet controlled. -Patient does snoring and does stop breathing as per his girlfriend. Outpatient workup for obstructive sleep apnea Follow-up with Dr. Lino Colvin. Disposition: Home. Past Medical History Past Medical History: Hypertension History of Any Multi-Drug Resistant Organisms: None Reported Past Surgical History: No Surgical Hx Reported Past Anesthesia/Blood Transfusion Reactions: No Reported Reaction Past Psychological History: No Psychological Hx Reported Smoking Status: Never smoker Past Alcohol Use History: None Reported Past Drug Use History: None Reported Plan - Discharge Summary Discharge Rx Participant: No New Discharge Prescriptions: New Losartan [Cozaar] 50 mg PO DAILY #30 tab Aspirin 81 mg PO DAILY #30 tab amLODIPine [Norvasc] 10 mg PO DAILY #30 tab Discharge Medication List Aspirin 81 mg PO DAILY #30 tab 09/27/23 [Rx] Losartan [Cozaar] 50 mg PO DAILY #30 tab 09/27/23 [Rx] amLODIPine [Norvasc] 10 mg PO DAILY #30 tab 09/27/23 [Rx] Follow up Appointment(s)/Referral(s): Prabhjot Colvin MD [Primary Care Provider] - 1 Week Artie Hooker MD [STAFF PHYSICIAN] - 3 Days Patient Instructions/Handouts: Hypertensive Crisis (DC) Activity/Diet/Wound Care/Special Instructions: work note given to patient Discharge Disposition: HOME SELF-CARE
== END 2023-09-27 13:25 | disposition home or self-care (01) ==
LOC: EC 09:47 → 6NMEDSUR 14:35
PROVIDERS: ADMIT Hospitalist; ATTEND Hospitalist
DX: I16.0 Hypertensive urgency (principal); I10 Essential (primary) hypertension; Z68.35 Body mass index [BMI] 35.0-35.9, adult; D50.9 Iron deficiency anemia, unspecified; E78.5 Hyperlipidemia, unspecified; G47.33 Obstructive sleep apnea (adult) (pediatric); E66.01 Morbid (severe) obesity due to excess calories; I27.20 Pulmonary hypertension, unspecified
CPT/HCPCS: 96374; 99285; 36415; 93005; 93306; 83835; 85379; 83880; 80061; 80053; 84443 ×2; 82533; 82088; 82607; 82728; 82746; 84244; 83540; 83550; 83735; 84484; 85025; 85610; 85730; 80306; 71046; G0378 ×2; J0360